=== PATIENT | female | born 1935 | race Caucasian/White ===

== ENCOUNTER → 2019-01-28 | Outpatient (CLI) | payer MEDICARE, BC ==
--- NOTE | 2019-01-29 07:22 | US ---
EXAMINATION TYPE: US carotid duplex BILAT DATE OF EXAM: 01/28/2019 COMPARISON: NONE CLINICAL HISTORY: I65.22 OCCLUSION AND STENOSIS LT CAROTID. 6 month follow up EXAM MEASUREMENTS: RIGHT: Peak Systolic Velocity (PSV) cm/sec ----- Right CCA: 96.7 ----- Right ICA: 91.3 ----- Right ECA: 162.8 ICA/CCA ratio: 0.9 RIGHT: End Diastole cm/sec ----- Right CCA: 19.9 ----- Right ICA: 33.9 ----- Right ECA: 32.0 LEFT: Peak Systolic Velocity (PSV) cm/sec ----- Left CCA: 87.5 ----- Left ICA: 196.5 ----- Left ECA: 110.5 ICA/CCA ratio: 2.2 LEFT: End Diastole cm/sec ----- Left CCA: 24.5 ----- Left ICA: 63.5 ----- Left ECA: 25.0 VERTEBRALS (direction of flow): Right Vertebral: Antegrade Left Vertebral: Antegrade Rhythm: Normal Bilateral intimal thickening, plaque bilateral bulb and left proximal ICA, elevated velocities: right proximal ECA, and left proximal and mid ICA, left ICA/CCA ratio 2.2 Turbulent flow is present bilaterally with filling of the acoustic window. IMPRESSION: 1. 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 This is causing moderate stenosis 50 and 69% at the le ft internal carotid artery origin. Correlate with patient's symptoms. 2. Mild stenosis of less than 50% present on the right ICA. Criteria for Assigning % of Stenosis / Diameter reduction (Estimation based on the indirect measurements of the internal carotid artery velocities (ICA PSV). 1. Normal (no stenosis)=ICA PSV < 125 cm/s: ratio < 2.0: ICA EDV<40 cm/s. 2. Less than 50% stenosis=ICA PSV < 125 cm/s: ratio < 2.0: ICA EDV<40 cm/s. 3. 50 to 69% stenosis=ICA PSV of 125 to 230 cm/s: ratio 2.0 ? 4.0: ICA EDV 40-100 cm/s. 4. Greater than 70% stenosis to near occlusion= ICA PSV > 230 cm/s: ratio > 4.0: ICA EDV > 100 cm/s. 5. Near occlusion= ICA PSV velocities may be low or undetectable: variable ratio and ICA EDV. 6. Total occlusion=unable to detect flow.
== END | disposition home or self-care (01) ==
LOC: RADUSWWP 16:08
PROVIDERS: ATTEND Internal Medicine Geriatric Medicine
DX: I65.23 Occlusion and stenosis of bilateral carotid arteries (principal)
CPT/HCPCS: 93880

== ENCOUNTER 2019-06-25 13:03 | Inpatient (IN) | payer MEDICARE, BC ==
[2019-06-25] MEDS ORDERED: methylPREDNISolone SOD SUCCI 125 MG/2 ML VIAL IV STA (13:36)
[2019-06-25] MEDS ORDERED: IPRATROPIUM-ALBUTEROL 3 ML NEB INHALATION STA ×3 (13:36→16:07)
[2019-06-25] MEDS ORDERED: SODIUM CHLORIDE 0.9% 1,000 ML IV STA (13:36)
--- NOTE | 2019-06-25 13:41 | ED ---
SOB HPI - General Chief Complaint: Shortness of Breath Stated Complaint: SOB Time Seen by Provider: 06/25/19 13:25 Source: patient, family, RN notes reviewed Mode of arrival: ambulatory Limitations: no limitations - History of Present Illness Initial Comments: This is a 83-year-old female was a former smoker who quit 25 years ago and was told she may have emphysema many years ago who states she's had a cough and shortness of breath for the past week or so. She states her family doctor put her on an inhaler which is not helping. He states is getting worse she has had yellow phlegm with her cough today was clear she has chills no fevers or sweats. She also states she has some right lower quadrant abdominal pain she believes is secondary to coughing so much she denies any nausea vomiting diarrhea or other symptoms at this time. No overt chest pain. MD Complaint: shortness of breath, cough - Related Data Allergies Allergy/AdvReac Type Severity Reaction Status Date / Time No Known Allergies Allergy Verified 06/25/19 13:16 Review of Systems ROS Statement: Those systems with pertinent positive or pertinent negative responses have been documented in the HPI. ROS Other: All systems not noted in ROS Statement are negative. Past Medical History Past Medical History: Hyperlipidemia, Hypertension History of Any Multi-Drug Resistant Organisms: None Reported Past Surgical History: Coronary Bypass/CABG Past Psychological History: No Psychological Hx Reported Smoking Status: Former smoker Past Alcohol Use History: Occasional Past Drug Use History: None Reported General Exam - General Exam Comments Initial Comments: This is a well-developed well-nourished awake alert oriented 3 female Limitations: no limitations General appearance: alert, anxious Head exam: Present: atraumatic, normocephalic, normal inspection Eye exam: Present: normal appearance, PERRL, EOMI. Absent: scleral icterus, conjunctival injection, periorbital swelling ENT exam: Present: mucous membranes dry Neck exam: Present: normal inspection, full ROM, other (No stridor JVD or bruits). Absent: tenderness, meningismus, lymphadenopathy Respiratory exam: Present: respiratory distress, wheezes, accessory muscle use, decreased breath sounds, other (Scattered right lower lobe rhonchi). Absent: rales, rhonchi, stridor Cardiovascular Exam: Present: regular rate, normal rhythm, normal heart sounds. Absent: systolic murmur, diastolic murmur, rubs, gallop, clicks GI/Abdominal exam: Present: soft, normal bowel sounds. Absent: distended, tend erness, guarding, rebound, rigid Extremities exam: Present: normal inspection, full ROM, normal capillary refill. Absent: tenderness, pedal edema, joint swelling, calf tenderness Back exam: Present: normal inspection Neurological exam: Present: alert, oriented X3, CN II-XII intact Psychiatric exam: Present: normal affect, normal mood Skin exam: Present: warm, dry, intact, normal color. Absent: rash Course Vital Signs 06/25/19 06/25/19 06/25/19 13:11 13:37 13:48 Temperature 97.6 F Pulse Rate 95 75 75 Respiratory 18 18 Rate Blood Pressure 144/83 132/82 O2 Sat by Pulse 95 96 Oximetry 06/25/19 06/25/19 06/25/19 13:54 13:55 14:38 Temperature Pulse Rate 76 76 Respiratory 18 18 Rate Blood Pressure 127/83 O2 Sat by Pulse 92 L Oximetry 06/25/19 06/25/19 15:34 15:47 Temperature Pulse Rate 75 79 Respiratory Rate Blood Pressure O2 Sat by Pulse Oximetry - Reevaluation(s) Reevaluation #1: 06/25/19 15:29 Patient does states she feels improved though her sats still about 91% with oxygen and repeat examination reveals markedly diminished breath sounds still perhaps somewhat better than the original exam however. Reevaluation #2: 06/25/19 16:09 She was ambulated after repeat updraft she demonstrates hypoxemia with saturations dropping down into the upper 90s demonstrates exertional dyspnea with paradoxical breathing and rib retractions. Medical Decision Making - Medical Decision Making I did discuss the findings with the patient later with Dr. Holland the patient is feeling outpatient treatment will require inpatient treatment. Patient will be admitted for inpatient treatment as well as consultation by Dr. Calero. - Lab Data Result diagrams: 06/25/19 13:50 06/25/19 13:50 Lab Results 06/25/19 06/25/19 06/25/19 Range/Units 13:50 13:50 13:50 WBC 9.0 (3.8-10.6) k/uL RBC 4.12 (3.80-5.40) m/uL Hgb 13.1 (11.4-16.0) gm/dL Hct 39.5 (34.0-46.0) % MCV 95.8 (80.0-100.0) fL MCH 31.7 (25.0-35.0) pg MCHC 33.1 (31.0-37.0) g/dL RDW 12.5 (11.5-15.5) % Plt Count 218 (150-450) k/uL Neutrophils % 73 % Lymphocytes % 17 % Monocytes % 7 % Eosinophils % 1 % Basophils % 1 % Neutrophils # 6.6 (1.3-7.7) k/uL Lymphocytes # 1.5 (1.0-4.8) k/uL Monocytes # 0.6 (0-1.0) k/uL Eosinophils # 0.1 (0-0.7) k/uL Basophils # 0.0 (0-0.2) k/uL PT 10.0 (9.0-12.0) sec INR 0.9 (<1.2) APTT 24.5 (22.0-30.0) sec Sodium 139 (137-145) mmol/L Potassium 4.0 (3.5-5.1) mmol/L Chloride 104 (98-107) mmol/L Carbon Dioxide 24 (22-30) mmol/L Anion Gap 11 mmol/L BUN 24 H (7-17) mg/dL Creatinine 1.56 H (0.52-1.04) mg/dL Est GFR (CKD-EPI)AfAm 35 (>60 ml/min/1.73 sqM) Est GFR (CKD-EPI)NonAf 30 (>60 ml/min/1.73 sqM) Glucose 110 H (74-99) mg/dL Calcium 9.4 (8.4-10.2) mg/dL Magnesium 2.0 (1.6-2.3) mg/dL Total Bilirubin 0.7 (0.2-1.3) mg/dL AST 23 (14-36) U/L ALT 16 (9-52) U/L Alkaline Phosphatase 86 (38-126) U/L Creatine Kinase 126 (30-135) U/L Troponin I (0.000-0.034) ng/mL NT-Pro-B Natriuret Pep pg/mL Total Protein 7.0 (6.3-8.2) g/dL Albumin 3.9 (3.5-5.0) g/dL 06/25/19 06/25/19 Range/Units 13:50 13:50 WBC (3.8-10.6) k/uL RBC (3.80-5.40) m/uL Hgb (11.4-16.0) gm/dL Hct (34.0-46.0) % MCV (80.0-100.0) fL MCH (25.0-35.0) pg MCHC (31.0-37.0) g/dL RDW (11.5-15.5) % Plt Count (150-450) k/uL Neutrophils % % Lymphocytes % % Monocytes % % Eosinophils % % Basophils % % Neutrophils # (1.3-7.7) k/uL Lymphocytes # (1.0-4.8) k/uL Monocytes # (0-1.0) k/uL Eosinophils # (0-0.7) k/uL Basophils # (0-0.2) k/uL PT (9.0-12.0) sec INR (<1.2) APTT (22.0-30.0) sec Sodium (137-145) mmol/L Potassium (3.5-5.1) mmol/L Chloride (98-107) mmol/L Carbon Dioxide (22-30) mmol/L Anion Gap mmol/L BUN (7-17) mg/dL Creatinine (0.52-1.04) mg/dL Est GFR (CKD-EPI)AfAm (>60 ml/min/1.73 sqM) Est GFR (CKD-EPI)NonAf (>60 ml/min/1.73 sqM) Glucose (74-99) mg/dL Calcium (8.4-10.2) mg/dL Magnesium (1.6-2.3) mg/dL Total Bilirubin (0.2-1.3) mg/dL AST (14-36) U/L ALT (9-52) U/L Alkaline Phosphatase (38-126) U/L Creatine Kinase (30-135) U/L Troponin I <0.012 (0.000-0.034) ng/mL NT-Pro-B Natriuret Pep 254 pg/mL Total Protein (6.3-8.2) g/dL Albumin (3.5-5.0) g/dL - EKG Data -: EKG Interpreted by Me EKG shows normal: sinus rhythm (Sinus rhythm a 78. Interval 146 QRS duration 76 QT/QTC 394/[address] configuration some artifact present) - Radiology Data Radiology results: report reviewed, image reviewed Critical Care Time Critical Care Time: Yes Critical Care Time: 31 minutes of critical care time which includes initial presentation with history physical labs x-rays multiple reevaluation the patient response to therapy discuss with the main physician admission orders and documentation of the above. Disposition Clinical Impression: Acute exacerbation of chronic obstructive pulmonary disease, Acute respiratory distress syndrome in adult, Failure of outpatient treatment, Bronchitis Disposition: ADMITTED IP TO THIS [facility] Condition: Fair Referrals: Chandler Holland MD [Primary Care Provider] - 1-2 days
[2019-06-25 14:12] LABS: Basophils % (A) 1 %; Eosinophils # (A) 0.1 k/uL (0-0.7); Eosinophils % (A) 1 %; HCT 39.5 % (34.0-46.0); HGB 13.1 gm/dL (11.4-16.0); Lymphocytes # (A) 1.5 k/uL (1.0-4.8); Lymphocytes % (A) 17 %; MCH 31.7 pg (25.0-35.0); MCHC 33.1 g/dL (31.0-37.0); MCV 95.8 fL (80.0-100.0); Mean Platelet Volume 8.8; Monocytes # (A) 0.6 k/uL (0-1.0); Monocytes % (A) 7 %; Neutrophils # (A) 6.6 k/uL (1.3-7.7); Neutrophils % (A) 73 %; Platelet Count 218 k/uL (150-450); RBC 4.12 m/uL (3.80-5.40); RDW 12.5 % (11.5-15.5)
--- NOTE | 2019-06-25 14:16 | XR ---
EXAMINATION TYPE: XR chest 2V DATE OF EXAM: 06/25/2019 COMPARISON: NONE HISTORY: Shortness of breath TECHNIQUE: Frontal and lateral views of the chest are obtained. FINDINGS: There is no focal air space opacity, pleural effusion, or pneumothorax seen. The cardiac silhouette size is within normal limits. There is unfolding of the abdominal aorta. Post CABG change s are seen. Increased anterior posterior of the chest on the lateral view suggesting underlying COPD. Diffuse osseous demineralization. The osseous structures are intact. IMPRESSION: No acute cardiopulmonary process. Findings suggesting underlying COPD.
[2019-06-25 14:21] LABS: Albumin 3.9 g/dL (3.5-5.0); Calcium 9.4 mg/dL (8.4-10.2); Total Bilirubin 0.7 mg/dL (0.2-1.3)
[2019-06-25 14:22] LABS: INR 0.9 (<1.2); Partial Thromboplastin Time 24.5 sec (22.0-30.0)
[2019-06-25] MEDS: SODIUM CHLORIDE 0.9% 1,000 ML IV SCH (16:22)
[2019-06-25] MEDS: methylPREDNISolone SOD SUCCI 125 MG/2 ML VIAL IV SCH ×2 (17:58→21:40)
--- NOTE | 2019-06-25 18:13 | P.CNPUL ---
History of Present Illness Consult date: 06/25/19 Reason for consult: COPD Chief complaint: shortness of breath and cough. History of present illness: this is an 83-year-old female with history of multiple medical problems including coronary artery disease, previous CABG, history of abdominal aortic aneurysm and previous repair, history of glaucoma, hypertension, recently seen by her hand etcher helper, and he was concerned about her glaucoma drops may be causing worsening symptoms of shortness of breath. conveyed to her primary care physician, and he recommended albuterol 2 puffs 4 times a day when necessary. Patient did not feel any better, continues to have intermittent episodes of cough, wheezing, lung congestion. Patient used to be a heavy smoker, she is at least a [id number] smoker, quit about 25 years ago. Never diagnosed with COPD and still recently. Patient came into the ER with worsening symptoms of cough wheezing and shortness of breath, cough described as productive with yellow phlegm. Chest x-ray showed no evidence of active disease. Patient was admitted and this consult was initiated. Patient denies any fever or chills, denies any hemoptysis, denies any chest pain, no nausea, no vomiting, and no abdominal pain. Review of Systems CONSTITUTIONAL: Denies weight loss fever or chills. CARDIOVASCULAR: Denies chest pain or syncope or palpitations. RESPIRATORY: as noted in HPI. Mostly recurrent episodes of cough wheezing and shortness of breath. GENITOURINARY: Denies hematuria frequency urgency or dysuria MUSCULOSKELETAL: Denies any aches or pains. SKIN: No rashes no pruritus. PSYCHIATRIC: Denies any active depression symptoms. NEUROLOGY: No headache blurred vision or dizziness EARS/NOSE/THROAT: No earache, no sore throat, no nasal discharge EYES:, no diplopia, no blurred vision. GI: Denies any nausea vomiting, no melena, no hematemesis. No abdominal pain. Past Medical History Past Medical History: Hyperlipidemia, Hypertension Additional Past Medical History / Comment(s): history of abdominal aortic aneurysm requiring repair at [facility]. History of Any Multi-Drug Resistant Organisms: None Reported Past Surgical History: Coronary Bypass/CABG Past Psychological History: No Psychological Hx Reported Smoking Status: Former smoker Past Alcohol Use History: Occasional Past Drug Use History: None Reported Medications and Allergies Home Medications Medication Instructions Recorded Confirmed Type ALPRAZolam [Xanax] 0.25 mg PO TID PRN 12/06/19 12/06/19 History Albuterol Inhaler [Ventolin Hfa 2 puff INHALATION RT-Q6H PRN 06/25/19 06/25/19 History Inhaler] Aspirin EC [Ecotrin Low Dose] 81 mg PO DAILY 06/25/19 06/25/19 History Carvedilol [Coreg] 6.25 mg PO BID 06/25/19 06/25/19 History Ergocalciferol [Vitamin D2] 50,000 unit PO ROMERO 06/25/19 06/25/19 History Furosemide [Lasix] 40 mg PO DAILY 06/25/19 06/25/19 History Losartan Potassium [Cozaar] 50 mg PO DAILY 06/25/19 06/25/19 History Simvastatin [Zocor] 40 mg PO DAILY 06/25/19 06/25/19 History Timolol 0.5% Ophth Soln [Timoptic 1 drop BOTH EYES DAILY 06/25/19 06/25/19 History 0.5% Ophth Soln] Allergies Allergy/AdvReac Type Severity Reaction Status Date / Time No Known Allergies Allergy Verified 06/25/19 16:56 Physical Exam Vitals: Vital Signs Temp Pulse Resp BP Pulse Ox 06/25/19 17:16 97.6 F 73 18 127/83 92 L 06/25/19 16:59 73 06/25/19 16:50 80 06/25/19 15:47 79 06/25/19 15:34 75 06/25/19 14:38 76 18 127/83 92 L 06/25/19 13:55 18 06/25/19 13:54 76 06/25/19 13:48 75 06/25/19 13:37 75 18 132/82 96 06/25/19 13:11 97.6 F 95 18 144/83 95 Intake and Output 06/25/19 06/25/19 06/25/19 06:59 14:59 22:59 Other: Weight 68.492 kg Physical Exam: Revealed a 83-year-old female, pleasant, in no distress. Head: Atraumatic, normocephalic. HEENT:[Neck is supple.] [No neck masses.] [No thyromegaly.] [No JVD.] PERRLA, EOMI, no icterus. Chest: [Diminished breath sounds at the bases no crackles or rhonchi or wheezes. Cardiac Exam: [Normal S1 and S2, no S3 gallop, no murmur.] Abdomen: [Soft, nontender, no megaly, no rebound, no guarding, normal bowel sounds.] Extremities: [No clubbing, no edema, no cyanosis.] Good pulses bilaterally Neurological Exam: [No focal neurologic deficit.] Alert and oriented 3. Psychiatric: Normal mood affect and normal mental status examination. Skin: No rashes. Lymphatics: No lymphadenopathy. Results - Laboratory Findings CBC and BMP: 06/25/19 13:50 06/25/19 13:50 PT/INR, D-dimer PT 10.0 sec (9.0-12.0) 06/25/19 13:50 INR 0.9 (<1.2) 06/25/19 13:50 Abnormal lab findings: Abnormal Labs 06/25/19 13:50 BUN 24 H Creatinine 1.56 H Glucose 110 H - Diagnostic Findings Chest x-ray: image reviewed (chest x-ray is consistent with COPD, no evidence of acute cardiopulmonary process.) Assessment and Plan Assessment: impression: 1 acute exacerbation of COPD 2 acute tracheobronchitis 3 history of underlying coronary artery disease and previous CABG over 12 years ago. Patient does not follow regularly with cardiology. 4 history of glaucoma. 5 history of abdominal aortic aneurysm requiring repair at [facility]. Recommendation: Continue present course of treatment including Augmentin, DuoNeb updrafts 4 times a day and when necessary, will add Symbicort continue methylprednisolone, and could possibly consider discharge planning in the next 24 or 48 hours, and follow-up on outpatient basis. We'll continue to follow. Time with Patient: Greater than 30
[2019-06-25] MEDS: PANTOPRAZOLE 40 MG TABLET PO SCH (18:25)
[2019-06-25] MEDS: SYMBICORT 160-4.5 MCG INHALER INHALATION SCH (19:24)
[2019-06-25] MEDS ORDERED: IPRATROPIUM-ALBUTEROL 3 ML NEB INHALATION SCH (20:00)
[2019-06-25] MEDS: ALPRAZolam 0.25 MG TAB PO PRN (21:40)
[2019-06-25] MEDS: CARVEDILOL 6.25 MG TAB PO SCH (21:40)
[2019-06-25] MEDS ORDERED: IPRATROPIUM-ALBUTEROL 3 ML NEB INHALATION PRN (21:42)
[2019-06-25] MEDS: AMOXIC-POT CLAV 875-125MG 1 EACH TAB PO SCH (22:02)
[2019-06-26] MEDS: SODIUM CHLORIDE 0.9% 1,000 ML IV SCH (03:37)
[2019-06-26] MEDS: methylPREDNISolone SOD SUCCI 125 MG/2 ML VIAL IV SCH (05:38)
[2019-06-26] MEDS: TIMOLOL 0.5% OPHTH DROPS 5 ML BTL BOTH EYES SCH (08:05)
[2019-06-26] MEDS: ASPIRIN 81 MG PO SCH (08:06)
[2019-06-26] MEDS: AMOXIC-POT CLAV 875-125MG 1 EACH TAB PO SCH ×2 (08:06→20:31)
[2019-06-26] MEDS: ATORVASTATIN 20 MG TAB PO SCH (08:06)
[2019-06-26] MEDS: CARVEDILOL 6.25 MG TAB PO SCH ×2 (08:06→17:20)
[2019-06-26] MEDS: HEPARIN SODIUM,PORCINE 5,000 UNIT/ML 1 ML VIAL SQ SCH ×2 (08:06→20:31)
[2019-06-26] MEDS: PANTOPRAZOLE 40 MG TABLET PO SCH (08:06)
[2019-06-26] MEDS: SYMBICORT 160-4.5 MCG INHALER INHALATION SCH ×2 (08:08→20:11)
[2019-06-26] MEDS: IPRATROPIUM-ALBUTEROL 3 ML NEB INHALATION SCH ×4 (08:08→20:12)
[2019-06-26] MEDS ORDERED: LOSARTAN 50 MG TAB PO SCH (09:00)
[2019-06-26 09:59] LABS: Calcium 9.8 mg/dL (8.4-10.2); Potassium 3.7 mmol/L (3.5-5.1)
--- NOTE | 2019-06-26 11:47 | P.HPIM ---
History of Present Illness H&P Date: 06/26/19 Chief Complaint: Worsening shortness of breath This is an 83-year-old female patient of Dr. Holland with past medical history of coronary artery disease status post three-vessel CABG, history of abdominal aortic aneurysm and previous repair performed at [facility], history of glaucoma, hypertension, hyperlipidemia, carotid artery disease, glaucoma, remote history of tobacco use. Patient complains of cough with yellow sputum production. She complains of cough with wheezing and shortness of breath is gradually worsening. Patient presented to [facility] emergency center for evaluation. She was afebrile, pulse ox 95% on room air. Pulse 95 and blood pressure 144/83. Despite treatment in the emergency center she continued to have a decrease in her pulse ox it was decided she would be admitted to the hospital and pulmonary consult has been obtained with Dr. Calero. Of BUN 24 and creatinine 1.56. No baseline lab work available to compare. Blood sugar 110. Troponin negative, proBNP 254. Chest x-ray shows no acute cardiopulmonary process. Findings suggest underlying COPD. at the time of this evaluation, patient states that she has the feeling significantly improved and states that she was able to get up to the bathroom and sharp. She is bringing up sputum for which a sputum culture will be obtained. She denies any fever or chills. She does complain of hoarseness. Solu-Medrol will be decreased to 40 mg every 8 hours. Home oxygen assessment to be done. Plan for discharge home tomorrow. Review of Systems Constitutional: Reports fatigue, Denies chills, Denies fever, Denies poor ap petite Eyes: denies blurred vision, denies pain Ears, nose, mouth and throat: Reports hoarseness, Denies nasal congestion, Denies nasal discharge, Denies vertigo Cardiovascular: Reports dyspnea on exertion, Reports shortness of breath, Denies chest pain, Denies leg edema, Denies lightheadedness, Denies syncope Respiratory: Reports cough, Reports cough with sputum, Reports dyspnea, Reports respiratory infections, Reports wheezing, Denies excessive sputum, Denies hemoptysis, Denies home oxygen Gastrointestinal: Denies abdominal pain, Denies diarrhea, Denies loss of appet ite, Denies nausea, Denies vomiting Genitourinary: Denies dysuria, Denies hematuria, Denies urgency, Denies urinary frequency Musculoskeletal: Denies frequent falls, Denies gait dysfunction, Denies myalgias Integumentary: Denies pruritus, Denies rash, Denies wounds Neurological: Denies change in mentation, Denies change in speech, Denies gait dysfunction, Denies numbness, Denies weakness Psychiatric: Denies anxiety, Denies depression Endocrine: Denies fatigue, Denies weight change Past Medical History Past Medical History: Hyperlipidemia, Hypertension Additional Past Medical History / Comment(s): history of abdominal aortic aneurysm requiring repair at [facility]. History of Any Multi-Drug Resistant Organisms: None Reported Past Surgical History: Coronary Bypass/CABG Additional Past Surgical History / Comment(s): three vessel/ aortic aneurisym repair Past Anesthesia/Blood Transfusion Reactions: No Reported Reaction Past Psychological History: No Psychological Hx Reported Smoking Status: Former smoker Past Alcohol Use History: Occasional Additional Past Alcohol Use History / Comment(s): The patient was a smoker one pack per day for 30 years and quit when she was 48 years of age. Past Drug Use History: None Reported - Past Family History Father Family Medical History: Cancer Additional Family Medical History / Comment(s): Father at age 70 from colon cancer. Mother Additional Family Medical History / Comment(s): Mother at age 92 with history of angina. Brother(s) Additional Family Medical History / Comment(s): Patient had 3 brothers. One at age 41 from a myocardial infarction, one from lung cancer, a third brother from a myocardial infarction. All brothers were smokers. Patient does not have any sisters. Daughter(s) Additional Family Medical History / Comment(s): The patient has 3 daughters. One from breast cancer, one from myocardial infarction. One has no major medical problems and lives in [place]. Patient does not have any sons. Medications and Allergies Home Medications Medication Instructions Recorded Confirmed Type ALPRAZolam [Xanax] 0.25 mg PO TID PRN 06/25/19 06/25/19 History Albuterol Inhaler [Ventolin Hfa 2 puff INHALATION RT-Q6H PRN 06/25/19 06/25/19 History Inhaler] Aspirin EC [Ecotrin Low Dose] 81 mg PO DAILY 06/25/19 06/25/19 History Carvedilol [Coreg] 6.25 mg PO BID 06/25/19 06/25/19 History Ergocalciferol [Vitamin D2] 50,000 unit PO ROMERO 06/25/19 06/25/19 History Furosemide [Lasix] 40 mg PO DAILY 06/25/19 06/25/19 History Losartan Potassium [Cozaar] 50 mg PO DAILY 06/25/19 06/25/19 History Simvastatin [Zocor] 40 mg PO DAILY 06/25/19 06/25/19 History Timolol 0.5% Ophth Soln [Timoptic 1 drop BOTH EYES DAILY 06/25/19 06/25/19 History 0.5% Ophth Soln] Allergies Allergy/AdvReac Type Severity Reaction Status Date / Time No Known Allergies Allergy Verified 06/25/19 16:56 Physical Exam Vitals: Vital Signs Temp Pulse Pulse Resp BP BP Pulse Ox 06/26/19 08:25 70 06/26/19 08:08 72 06/26/19 04:29 97.7 F 82 19 146/74 90 L 06/26/19 00:00 96 18 06/25/19 20:41 97.8 F 96 18 135/69 93 L 06/25/19 19:45 70 06/25/19 19:25 72 97 06/25/19 18:05 97.5 F L 101 H 18 142/73 96 06/25/19 17:16 97.6 F 73 18 127/83 92 L 06/25/19 16:59 73 06/25/19 16:50 80 06/25/19 15:47 79 06/25/19 15:34 75 06/25/19 14:38 76 18 127/83 92 L 06/25/19 13:55 18 06/25/19 13:54 76 06/25/19 13:48 75 06/25/19 13:37 75 18 132/82 96 06/25/19 13:11 97.6 F 95 18 144/83 95 Intake and Output 06/25/19 06/26/19 06/26/19 22:59 06:59 14:59 Intake Total 1020 Balance 1020 Intake: Intake, IV Titration 600 Amount Sodium Chloride 0.9% 1, 600 000 ml @ 100 mls/hr IV . Q10H STA Rx#:[id number] Oral 420 Other: # Voids 1 2 Weight 68.492 kg Gen: This is an 83-year-old female. She is resting in bed and appears to be comfortable and in no acute distress. No respiratory distress noted. HEENT: Head is atraumatic, normocephalic. Pupils equal, round. Sclerae is anicteric, hoarseness noted. NECK: Supple. No JVD. No lymphadenopathy. No thyromegaly. LUNGS: Diminished in the bases with end expiratory wheeze. No wheezes or rhonchi. No intercostal retractions. HEART: Regular rate and rhythm. No murmur. ABDOMEN: Soft. Bowel sounds are present. No masses. No tenderness. Ventral hernia, soft. EXTREMITIES: No pedal edema. No calf tenderness. Dorsalis pedis +2 bila terally. NEUROLOGICAL: Patient is awake, alert and oriented x3. Cranial nerves 2 through 12 are grossly intact. Results CBC & Chem 7: 06/25/19 13:50 06/26/19 09:11 Labs: Abnormal Lab Results - Last 24 Hours (Table) 06/25/19 Range/Units 13:50 BUN 24 H (7-17) mg/dL Creatinine 1.56 H (0.52-1.04) mg/dL Glucose 110 H (74-99) mg/dL Thrombosis Risk Factor Assmnt - DVT/VTE Prophylaxis DVT/VTE Prophylaxis: Pharmacologic Prophylaxis ordered - Choose All That Apply Each Factor Represents 1 point: Abnormal pulmonary function (COPD), Obesity (BMI >25) Each Risk Factor Represents 3 Points: Age 75 years or older Other congenital or acquired thrombophilia - If yes, enter type in comment: No Thrombosis Risk Factor Assessment Total Risk Factor Score: 5 Thrombosis Risk Factor Assessment Level: High Risk Assessment and Plan Plan: 1. Acute respiratory distress secondary to COPD exacerbation with acute tracheobronchitis. Continue DuoNeb treatments 4 times daily and every 2 hours as needed, Augmentin twice daily, Symbicort 2 puffs twice daily, Solu-Medrol 60 mg IV every 6 hours will be reduced to 40 mg every 8 hours. 2. History of coronary artery disease status post CABG over 12 years ago. Continue Coreg 6.25 mg twice daily, aspirin 81 mg daily, Lipitor 20 mg daily. 3. Hypertension. Continue Coreg, Lasix 40 mg daily and losartan 50 mg daily. Losartan discontinued and patient started on hydralazine. 4. Hyperlipidemia. Continue statin. 5. History of abdominal aortic aneurysm status post repair at [facility], stable. 6. Glaucoma. Continue eyedrops 7. Carotid artery disease with moderate stenosis 50-69% on the left and mild st enosis of less than 50% on the right ICA, stable. 8. DVT prophylaxis. Heparin subcu every 12 hours. 9. GI prophylaxis. Protonix. 10. Possible chronic hypoxic respiratory failure. Patient will be assessed for home oxygen needs. 11. Acute kidney injury with chronic kidney disease stage. Losartan discontinued and patient placed on hydralazine 25 mg twice daily Patient will be admitted to the hospital for a minimum of 2 night stay. Discharge plan: home on Friday. Impression and plan of care have been directed as dictated by the signing physician. Yulia Wright nurse practitioner acting as scribe for signing physician.
[2019-06-26 12:12] VITALS: BMI 29.5
--- NOTE | 2019-06-26 13:25 | P.PN ---
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 conveyed to her primary care physician, and he recommended albuterol 2 puffs 4 times a day when necessary. Patient did not feel any better, continues to have intermittent episodes of cough, wheezing, lung congestion. Patient used to be a heavy smoker, she is at least a [id number] smoker, quit about 25 years ago. Never diagnosed with COPD and still recently. Patient came into the ER with worsening symptoms of cough wheezing and shortness of breath, cough described as productive with yellow phlegm. Chest x-ray showed no evidence of active disease. Patient was admitted and this consult was initiated. Patient denies any fever or chills, denies any hemoptysis, denies any chest pain, no nausea, no vomiting, and no abdominal pain . Reevaluated today on 06/26/2019, patient is slightly better compared to yesterday, less cough and less wheezing less shortness of breath. Placed on multiple bronchodilators as noted in my previous note. Labs today were all reviewed, creatinine is a bit higher compared to yesterday it is 1.62 today. Remains on updrafts, Symbicort, and methylprednisolone. Objective - Vital Signs Vital signs: Vital Signs Temp 98.3 F 06/26/19 12:47 Pulse 76 06/26/19 12:51 Resp 17 06/26/19 12:47 BP 130/76 06/26/19 12:47 Pulse Ox 93 L 06/26/19 12:47 Intake & Output 06/25/19 06/26/19 06/26/19 18:59 06:59 18:59 Intake Total 1020 Balance 1020 Weight 68.492 kg 68.492 kg Intake: Intake, IV Titration 600 Amount Sodium Chloride 0.9% 1, 600 000 ml @ 100 mls/hr IV . Q10H STA Rx#:[id number] Oral 420 Other: Voiding Method Toilet # Voids 2 - Exam Physical Exam: Revealed a 83-year-old female, pleasant, in no distress. Head: Atraumatic, normocephalic. HEENT:[Neck is supple.] [No neck masses.] [No thyromegaly.] [No JVD.] PERRLA, EOMI, no icterus. Chest: [Diminished breath sounds at the bases no crackles or rhonchi or wheezes. Cardiac Exam: [Normal S1 and S2, no S3 gallop, no murmur.] Abdomen: [Soft, nontender, no megaly, no rebound, no guarding, normal bowel sounds.] Extremities: [No clubbing, no edema, no cyanosis.] Good pulses bilaterally Neurological Exam: [No focal neurologic deficit.] Alert and oriented 3. Psychiatric: Normal mood affect and normal mental status examination. Skin: No rashes. Lymphatics: No lymphadenopathy. - Labs CBC & Chem 7: 06/25/19 13:50 06/26/19 09:11 Labs: Abnormal Lab Results - Last 24 Hours (Table) 06/25/19 06/26/19 Range/Units 13:50 09:11 BUN 24 H 23 H (7-17) mg/dL Creatinine 1.56 H 1.62 H (0.52-1.04) mg/dL Glucose 110 H 208 H (74-99) mg/dL Assessment and Plan Assessment: impression: 1 acute exacerbation of COPD 2 acute tracheobronchitis 3 history of underlying coronary artery disease and previous CABG over 12 years ago. Patient does not follow regularly with cardiology. 4 history of glaucoma. 5 history of abdominal aortic aneurysm requiring repair at [facility]. Recommendation: Continue present course of treatment including Augmentin, DuoNeb updrafts 4 times a day continue methylprednisolone, continue Symbicort, possible discharge planning on Friday. We'll continue to follow. Time with Patient: Less than 30
[2019-06-26] MEDS: ALPRAZolam 0.25 MG TAB PO PRN (14:42)
[2019-06-26] MEDS ORDERED: methylPREDNISolone SOD SUCCI 40 MG/ML 1 ML VIAL IV SCH (16:00)
[2019-06-26] MEDS: hydrALAZINE HCL 25 MG TAB PO SCH (20:31)
[2019-06-26] MEDS: methylPREDNISolone SOD SUCCI 40 MG/ML 1 ML VIAL IV SCH (20:31)
[2019-06-26] MEDS ORDERED: TEMAZEPAM 15 MG CAP PO SCH (21:00)
[2019-06-27 04:48] VITALS: BP 101/63; RESP 17; TEMP 97.6
[2019-06-27] MEDS: SYMBICORT 160-4.5 MCG INHALER INHALATION SCH (07:23)
[2019-06-27] MEDS: IPRATROPIUM-ALBUTEROL 3 ML NEB INHALATION SCH ×2 (07:25→11:02)
[2019-06-27 07:58] LABS: Potassium 3.9 mmol/L (3.5-5.1)
[2019-06-27] MEDS: hydrALAZINE HCL 25 MG TAB PO SCH (08:23)
[2019-06-27] MEDS: TIMOLOL 0.5% OPHTH DROPS 5 ML BTL BOTH EYES SCH (08:23)
[2019-06-27] MEDS: ASPIRIN 81 MG PO SCH (08:24)
[2019-06-27] MEDS: HEPARIN SODIUM,PORCINE 5,000 UNIT/ML 1 ML VIAL SQ SCH (08:24)
[2019-06-27] MEDS: PANTOPRAZOLE 40 MG TABLET PO SCH (08:24)
[2019-06-27] MEDS: ATORVASTATIN 20 MG TAB PO SCH (08:24)
[2019-06-27] MEDS: CARVEDILOL 6.25 MG TAB PO SCH (08:24)
[2019-06-27] MEDS: AMOXIC-POT CLAV 875-125MG 1 EACH TAB PO SCH (08:24)
[2019-06-27] MEDS: methylPREDNISolone SOD SUCCI 40 MG/ML 1 ML VIAL IV SCH (08:24)
--- NOTE | 2019-06-27 10:59 | P.PN ---
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 conveyed to her primary care physician, and he recommended albuterol 2 puffs 4 times a day when necessary. Patient did not feel any better, continues to have intermittent episodes of cough, wheezing, lung congestion. Patient used to be a heavy smoker, she is at least a [id number] smoker, quit about 25 years ago. Never diagnosed with COPD and still recently. Patient came into the ER with worsening symptoms of cough wheezing and shortness of breath, cough described as productive with yellow phlegm. Chest x-ray showed no evidence of active disease. Patient was admitted and this consult was initiated. Patient denies any fever or chills, denies any hemoptysis, denies any chest pain, no nausea, no vomiting, and no abdominal pain. Reevaluated today on 06/26/2019, patient is slightly better compared to yesterday, less cough and less wheezing less shortness of breath. Placed on multiple bronchodilators as noted in my previous note. Labs today were all reviewed, creatinine is a bit higher compared to yesterday it is 1.62 today. Remains on updrafts, Symbicort, and methylprednisolone. On 06/27/2019 patient seen in follow-up on medical surgical floor, she states her breathing has significantly improved, vital signs are stable, she has been ambulating the full length of the rose, doing well, no acute events overnight, lung sounds reveal minimal crackles and minimal wheezes, time she is bringing up some yellow colored phlegm, but no significant congestion on today's exam, remains on IV steroids, nebulized bronchodilators and empiric antibiotics, clinically improved, and patient is being discharged home today. Objective - Vital Signs Vital signs: Vital Signs Temp 97.6 F 06/27/19 04:47 Pulse 85 06/27/19 07:38 Resp 17 06/27/19 04:47 BP 101/63 06/27/19 04:47 Pulse Ox 93 L 06/27/19 07:26 Intake & Output 06/26/19 06/27/19 06/27/19 18:59 06:59 18:59 Intake Total 1140 Balance 1140 Weight 68.492 kg Intake: Intake, IV Titration 600 Amount Sodium Chloride 0.9% 1, 600 000 ml @ 100 mls/hr IV . Q10H INDRA Rx#:[id number] Oral 540 Other: Voiding Method Toilet Toilet Toilet # Voids 3 1 - Exam GENERAL EXAM: Alert, pleasant, 83-year-old white female, on room air, with a pulse ox of 93% comfortable in no apparent distress. HEAD: Normocephalic/atraumatic. EYES: Normal reaction of pupils, equal size. Conjunctiva pink, sclera white. NOSE: Clear with pink turbinates. THROAT: No erythema or exudates. NECK: No masses, no JVD, no thyroid enlargement, no adenopathy. CHEST: No chest wall deformity. Symmetrical expansion. LUNGS: Equal air entry with minimal basilar crackles, and minimal wheeze, no rhonchi or dullness. CVS: Regular rate and rhythm, normal S1 and S2, no gallops, no murmurs, no rubs ABDOMEN: Soft, nontender. No hepatosplenomegaly, normal bowel sounds, no guarding or rigidity. EXTREMITIES: No clubbing, no edema, no cyanosis, 2+ pulses and upper and lower extremities. MUSCULOSKELETAL: Muscle strength and tone normal. SPINE: No scoliosis or deformity SKIN: No rashes CENTRAL NERVOUS SYSTEM: Alert and oriented -3. No focal deficits, tone is normal in all 4 extremities. PSYCHIATRIC: Alert and oriented -3. Appropriate affect. Intact judgment and insight. - Labs CBC & Chem 7: 06/25/19 13:50 06/27/19 07:15 Labs: Abnormal Lab Results - Last 24 Hours (Table) 06/27/19 Range/Units 07:15 Chloride 110 H (98-107) mmol/L BUN 25 H (7-17) mg/dL Creatinine 1.50 H (0.52-1.04) mg/dL Glucose 125 H (74-99) mg/dL Microbiology - Last 24 Hours (Table) 06/25/19 13:50 Blood Culture - Preliminary Blood No Growth after 24 hours Assessment and Plan Plan: Assessment: 1 acute exacerbation of COPD 2 acute tracheobronchitis 3 history of underlying coronary artery disease and previous CABG over 12 years ago. Patient does not follow regularly with cardiology. 4 history of glaucoma. 5 history of abdominal aortic aneurysm requiring repair at [facility]. Plan: Patient is doing well, significantly improved since admission, breathing easier, she is on room air, vital signs are stable, responded well to inpatient treatments, patient is being discharged home today, and she will need outpatient follow-up with Dr. Teran in the office in one or 2 weeks I performed a history & physical examination of the patient and discussed their management with my nurse practitioner, Bonny Guerra. I reviewed the nurse practitioner's note and agree with the documented findings and plan of care. Lung sounds are positive for minimal crackles and minimal wheezes. The findings and the impression was discussed with the patient. I attest to the documentation by the nurse practitioner. Time with Patient: Less than 30
[2019-06-27 11:16] VITALS: PULSE 84
--- NOTE | 2019-06-27 13:07 | P.DS ---
Providers Date of admission: 06/25/19 16:11 Expected date of discharge: 06/27/19 Attending physician: Chandler [facility] Consults: 06/25/19 16:11 Consult Physician Routine Consulting Provider: Stanley Calero Consult Reason/Comments: COPD exacerbation, bronchitis, outpatient treatment failure Do you want consulting provider notified?: Yes Primary care physician: [facility] Course: This is an 83-year-old female patient of Dr. Holland with past medical history of coronary artery disease status post three-vessel CABG, history of abdominal aortic aneurysm and previous repair performed at , history of glaucoma, hypertension, hyperlipidemia, carotid artery disease, glaucoma, remote history of tobacco use. Patient complains of cough with yellow sputum production. She complains of cough with wheezing and shortness of breath is gradually worsening. Patient presented to [facility] emergency center for evaluation. She was afebrile, pulse ox 95% on room air. Pulse 95 and blood pressure 144/83. Despite treatment in the emergency center she continued to have a decrease in her pulse ox it was decided she would be admitted to the hospital and pulmonary consult has been obtained with Dr. Calero. Of BUN 24 and creatinine 1.56. No baseline lab work available to compare. Blood sugar 110. Troponin negative, proBNP 254. Chest x-ray shows no acute cardiopulmonary process. Findings suggest underlying COPD. at the time of this evaluation, patient states that she has the feeling significantly improved and states that she was able to get up to the bathroom and sharp. She is bringing up sputum for which a sputum culture will be obtained. She denies any fever or chills. She does complain of hoarseness. Solu-Medrol will be decreased to 40 mg every 8 hours. Home oxygen assessment to be done. Plan for discharge home tomorrow. 06/27: Patient states today that her breathing is significantly better. She has been hemodynamically stable. She did not qualify for home oxygen. She is bringing up minimal yellow colored phlegm. We will transition her to oral medications and discharged home today in stable condition. Discharge diagnoses: 1. Acute respiratory distress secondary to COPD exacerbation with acute tracheobronchitis. 2. History of coronary artery disease status post CABG over 12 years ago. 3. Hypertension. 4. Hyperlipidemia. 5. History of abdominal aortic aneurysm status post repair at , stable. 6. Glaucoma. 7. Carotid artery disease with moderate stenosis 50-69% on the left and mild stenosis of less than 50% on the right ICA, stable. 8. DVT prophylaxis. 9. GI prophylaxis. 10. Possible chronic hypoxic respiratory failure, ruled out. 11. Chronic kidney disease stage. Discharge plan: home. Impression and plan of care have been directed as dictated by the signing physician. Yulia Wright nurse practitioner acting as scribe for signing colleen olguin. Patient Condition at Discharge: Good Plan - Discharge Summary Discharge Rx Participant: No New Discharge Prescriptions: New hydrALAZINE HCL [Apresoline] 25 mg PO BID #60 tab Amoxic-Pot Clav 875-125Mg [Augmentin 875-125] 1 each PO BID #10 tab predniSONE 0 mg PO DIRECTED #30 tab Budesonide-Formot 160-4.5 Mcg [Symbicort 160-4.5 Mcg Inhaler] 2 puff INHALATION RT-BID #1 inhaler Continue Timolol 0.5% Ophth Soln [Timoptic 0.5% Ophth Soln] 1 drop BOTH EYES DAILY Albuterol Inhaler [Ventolin Hfa Inhaler] 2 puff INHALATION RT-Q6H PRN PRN Reason: Shortness Of Breath ALPRAZolam [Xanax] 0.25 mg PO TID PRN PRN Reason: Anxiety Simvastatin [Zocor] 40 mg PO DAILY Ergocalciferol [Vitamin D2 (DRISDOL)] 50,000 unit PO ROMERO Aspirin EC [Ecotrin Low Dose] 81 mg PO DAILY Furosemide [Lasix] 40 mg PO DAILY Carvedilol [Coreg] 6.25 mg PO BID Discontinued Losartan Potassium [Cozaar] 50 mg PO DAILY Discharge Medication List ALPRAZolam [Xanax] 0.25 mg PO TID PRN 06/25/19 [History] Albuterol Inhaler [Ventolin Hfa Inhaler] 2 puff INHALATION RT-Q6H PRN 06/25/19 [History] Aspirin EC [Ecotrin Low Dose] 81 mg PO DAILY 06/25/19 [History] Carvedilol [Coreg] 6.25 mg PO BID 06/25/19 [History] Ergocalciferol [Vitamin D2 (DRISDOL)] 50,000 unit PO ROMREO 06/25/19 [History] Furosemide [Lasix] 40 mg PO DAILY 06/25/19 [History] Simvastatin [Zocor] 40 mg PO DAILY 06/25/19 [History] Timolol 0.5% Ophth Soln [Timoptic 0.5% Ophth Soln] 1 drop BOTH EYES DAILY 06/25/19 [History] Amoxic-Pot Clav 875-125Mg [Augmentin 875-125] 1 each PO BID #10 tab 06/27/19 [Rx] Budesonide-Formot 160-4.5 Mcg [Symbicort 160-4.5 Mcg Inhaler] 2 puff INHALATION RT-BID #1 inhaler 06/27/19 [Rx] hydrALAZINE HCL [Apresoline] 25 mg PO BID #60 tab 06/27/19 [Rx] predniSONE 0 mg PO DIRECTED #30 tab 06/27/19 [Rx] Follow up Appointment(s)/Referral(s): Stanley Calero MD [STAFF PHYSICIAN] - 1 Week Chandler Holland MD [Primary Care Provider] - 1 Week Patient Instructions/Handouts: ARDS (Acute Respiratory Distress Syndrome) (GEN), Acute Bronchitis (ED), COPD (Chronic Obstructive Pulmonary Disease) (DC)
--- NOTE | 2019-07-01 06:44 | CDI ---
Documentation Clarification Form Date: 07/01/2019 6:27:00 AM From: Veronika Zazuetas Phone: If you have a question about this query, please contact Dana Carrillo [employer] at [phone] between 8am and 5pm Admit Date: 06/25/2019 4:11:00 PM Patient Name: Shelley Barnes Visit Number: [id number] Discharge Date: 06/27/2019 1:08:00 PM ATTENTION: The Clinical Documentation Specialists (CDI) and [facility] Coding Staff appreciate your assistance in clarifying documentation. Please respond to the clarification below the line at the bottom and electronically sign. The CDI & [facility] Coding staff will review the response and follow-up if needed. Please note: Queries are made part of the Legal Health Record. If you have any questions, please contact the author of this message via ITS. Dr. Chandler Holland Documentation of emphysema is located in the ER notes. "patient was a former smoker who quit 25 years ago and was told she may have emphysema many years ago. Please clarify, does patient have emphysema? History/Risk Factors: history of tobacco, acute bronchiitis, COPD Significant history of respiratory disorders/disease COPD Present or past smoker/PPD 1 PPD for 30 years Clinical Indicators: Acute respiratory distress CXR underlying COPD Vital Signs/Pulse Oximetry: Treatment: DuoNeb tx 4 x daily every 2 hours PRN, Augmentin, Symbicort SoluMedrol 60 MG IV O2 @ 2 liters Antibiotics Augmentin In your professional opinion, can you please clarify if the above findings and treatment signify any of the following? Emphysema Emphysema ruled out Other condition, please specify Unable to determine Patient has COPD. It is in the dc summary. MTDD
== END 2019-06-27 13:08 | disposition home or self-care (01) | DRG 191 ==
LOC: EC 13:03 → 3NMEDONC 16:11
PROVIDERS: ADMIT Internal Medicine Geriatric Medicine; ATTEND Internal Medicine Geriatric Medicine
DX: J44.1 Chronic obstructive pulmonary disease with (acute) exacerbation (principal); N17.9 Acute kidney failure, unspecified; J44.0 Chronic obstructive pulmonary disease with (acute) lower respiratory infection; R06.03 Acute respiratory distress; E78.5 Hyperlipidemia, unspecified; H40.9 Unspecified glaucoma; I12.9 Hypertensive chronic kidney disease with stage 1 through stage 4 chronic kidney disease, or unspecified chronic kidney disease; I25.10 Atherosclerotic heart disease of native coronary artery without angina pectoris; J20.9 Acute bronchitis, unspecified; N18.9 Chronic kidney disease, unspecified; Z79.82 Long term (current) use of aspirin; Z79.899 Other long term (current) drug therapy; Z86.79 Personal history of other diseases of the circulatory system; Z87.891 Personal history of nicotine dependence; Z95.1 Presence of aortocoronary bypass graft; T49.5X5A Adverse effect of ophthalmological drugs and preparations, initial encounter; I65.23 Occlusion and stenosis of bilateral carotid arteries; Z99.89 Dependence on other enabling machines and devices
CPT/HCPCS: 36415; 71046; 80048; 80053; 82550; 83735; 83880; 84484; 85025; 85610; 85730; 87040; 87070; 87205; 93005; 94640; 94760; 96361; 96374; 99291

== ENCOUNTER 2020-04-12 12:25 | Day surgery (SDC) | payer MEDICARE, BC ==
[2020-04-11 11:07] VITALS: BMI 27.3
[~2020-04-12 12:25] MED LIST: DEXAMETHASONE SOD PHOSPHATE 10 MG/ML 1 ML VIAL IV ONE; LACTATED RINGERS 1,000 ML IV SCH; MOXIFLOXACIN HCL 0.5% DROPS 3 ML BTL OP NR; ONDANSETRON 4 MG/2 ML VIAL IVP ONE; TETRACAINE 0.5% OPHTH (PF) DROPS 4 ML BTL OP NR; TIMOLOL 0.5% OPHTH DROPS 5 ML BTL OP NR; TOBRA-DEXAMET 0.3-0.1% OPHTH DROPS 2.5 ML BTL OPHTHALMIC NR; fentaNYL (PF) 50 MCG/ML 2 ML AMP IV PRN; fentaNYL (PF) 50 MCG/ML 2 ML AMP IVP PRN
[2020-04-12 13:07] VITALS: RESP 16; TEMP 98.3
[2020-04-12] MEDS: PILOCARPINE 2% OPHTH DROPS 15 ML BTL OP NR ×2 (13:17→14:11)
[2020-04-12] MEDS ORDERED: fentaNYL (PF) 50 MCG/ML 2 ML AMP ONE (13:50)
[2020-04-12] MEDS ORDERED: BALANCED SALT IRRIG SOLN COMB2 500 ML IRRIGATION ONE (14:09)
[2020-04-12] MEDS ORDERED: HYALURONATE SODIUM INTRAOCULAR 1 EACH SYRINGE (10MG/ML) INTRAOCULA ONE (14:11)
[2020-04-12] MEDS ORDERED: TRYPAN BLUE 0.06% SYRINGE 0.5 ML SYRINGE MISCELLANE ONE (14:13)
--- NOTE | 2020-04-12 14:35 | P.OP ---
Date of Procedure: 04/12/20 Preoperative Diagnosis: POAG moderate Postoperative Diagnosis: same Procedure(s) Performed: goniotomy OD Implants: none Anesthesia: MAC Surgeon: Michele Ding Pathology: none sent Condition: stable Disposition: same day Indications for Procedure: poor glaucoma control Operative Findings: no complications
[2020-04-12 14:59] VITALS: BP 164/75; PULSE 71
--- NOTE | 2020-04-12 23:10 | OP ---
OPERATIVE REPORT DATE OF SURGERY: 04/12/2020. PROCEDURE: Goniotomy of the right eye. PREOPERATIVE DIAGNOSIS: Primary open-angle glaucoma, mild stage, with poor control. POSTOPERATIVE DIAGNOSIS: Primary open-angle glaucoma, mild stage, with poor control. SURGEON: Dr. Michele Ding. ANESTHESIA: Monitored anesthesia care. ESTIMATED BLOOD LOSS: Less than 5 mL. SPECIMEN TAKEN: None. NARRATIVE: After obtaining the appropriate consent, the patient was brought to the operating room. There she was placed under cardiac monitoring, prepped and draped in the usual sterile manner. She was approached from her right temporal side, and at the 9 o'clock position, a 2.5 mm keratome was used to create a self-sealing corneal flap incision. Through this opening 1% Xylocaine MPF 50:50 mix with balanced salt solution was injected into the anterior chamber. This was followed by instillation of Trypan blue, which was left in place for one minute. This was irrigated away and Viscoat was then used to deepen the anterior chamber. A small amount of the viscoelastic was also placed on the patient's cornea. The patient was then rotated approximately 45 degrees away to her left while maintaining a gaze in that general direction. Using the KDB knife, a goniotomy of the nasal trabecular meshwork was performed for approximately 5 clock hours. The instrument was withdrawn and there was some reflux of blood from the trabecular meshwork, as would be expected. Irrigation and aspiration of the viscoelastic was accomplished, and the temporal incision proved to be inadequate to maintain proper closure. Therefore single 10-0 nylon suture was placed through the corneal limbus. She then received 2 drops of 0.5% Timolol, 2 drops of moxifloxacin and 2 drops of 2% pilocarpine. She was then lightly patched and shielded in the usual manner. There were no complications from the procedure. She tolerated the procedure well and was returned to [facility] in good condition. MMODL / IJN: [id number] /
== END 2020-04-12 15:14 | disposition home or self-care (01) ==
LOC: OR 12:25
PROVIDERS: ATTEND Ophthalmology
DX: H40.1111 Primary open-angle glaucoma, right eye, mild stage (principal); H40.1331 Pigmentary glaucoma, bilateral, mild stage; H21.233 Degeneration of iris (pigmentary), bilateral; H01.003 Unspecified blepharitis right eye, unspecified eyelid; H00.023 Hordeolum internum right eye, unspecified eyelid; H00.026 Hordeolum internum left eye, unspecified eyelid; H52.222 Regular astigmatism, left eye; H52.4 Presbyopia; I11.0 Hypertensive heart disease with heart failure; I50.9 Heart failure, unspecified; I71.4 Abdominal aortic aneurysm, without rupture; I25.10 Atherosclerotic heart disease of native coronary artery without angina pectoris; E78.5 Hyperlipidemia, unspecified; H91.90 Unspecified hearing loss, unspecified ear; J43.9 Emphysema, unspecified; F32.9 Major depressive disorder, single episode, unspecified; M19.90 Unspecified osteoarthritis, unspecified site; I73.9 Peripheral vascular disease, unspecified; F41.9 Anxiety disorder, unspecified; K21.9 Gastro-esophageal reflux disease without esophagitis; Z95.1 Presence of aortocoronary bypass graft; Z98.890 Other specified postprocedural states; Z97.3 Presence of spectacles and contact lenses; Z96.1 Presence of intraocular lens; Z98.41 Cataract extraction status, right eye; Z98.42 Cataract extraction status, left eye; Z79.02 Long term (current) use of antithrombotics/antiplatelets; Z79.51 Long term (current) use of inhaled steroids; Z79.899 Other long term (current) drug therapy
CPT/HCPCS: 65820; J3010

== ENCOUNTER → 2021-08-20 | Outpatient (CLI) | payer MEDICARE, BC ==
--- NOTE | 2021-08-20 16:53 | ECHOF ---
Referral Reason:I42.9 cardiomyopathy MEASUREMENTS -------- HEIGHT: 152.4 cm WEIGHT: 65.8 kg BP: IVSd: 0.9 cm (0.6 - 1.1) LVIDd: 3.0 cm (3.9 - 5.3) LVPWd: 1.2 cm (0.6 - 1.1) IVSs: 1.7 cm LVIDs: 2.1 cm LVPWs: 1.4 cm LAESV Index (A-L): 26.92 ml/m Ao Diam: 3.3 cm (2.0 - 3.7) AV Cusp: 2.0 cm (1.5 - 2.6) LA Diam: 3.4 cm (2.7 - 3.8) MV EXCURSION: 18.048 mm (> 18.000) MV EF SLOPE: 157 mm/s (70 - 150) EPSS: 0.8 cm MV E Jose F: 0.50 m/s MV DecT: 263 ms MV A Jose F: 0.83 m/s MV E/A Ratio: 0.60 AR PHT: 616 ms RAP: 5.00 mmHg RVSP: 18.75 mmHg FINDINGS -------- This was a technically good study. The left ventricular size is normal. There is mild concentric left ventricular hypertrophy. Overa ll left ventricular systolic function is low-normal with, an EF between 50 - 55 %. The diastolic fi lling pattern is normal for the age of the patient 8.75. The right ventricle is normal in size. The left atrial size is normal. Normal LA size by volume 22+/-6 ml/m2. The right atrial size is normal. The aortic valve is trileaflet and appears structurally normal. There is mild aortic regurgitation. The mitral valve is normal. Mild mitral regurgitation is present. The tricuspid valve appears structurally normal. Mild tricuspid regurgitation present. Right vent ricular systolic pressure is normal at < 35 mmHg. There is no pulmonic regurgitation present. The aortic root size is normal. Normal inferior vena cava with normal inspiratory collapse consistent with estimated right atrial pre ssure of 5 mmHg. There is no pericardial effusion. CONCLUSIONS -------- 1. The left ventricular size is normal. 2. There is mild concentric left ventricular hypertrophy. 3. Overall left ventricular systolic function is low-normal with, an EF between 50 - 55 %. 4. The diastolic filling pattern is normal for the age of the patient 8.75 5. There is mild aortic regurgitation. 6. Mild mitral regurgitation is present. 7. Mild tricuspid regurgitation present. 8. There is no pericardial effusion. [employer] OPERATOR: Marci Zabala RDCS
== END | disposition home or self-care (01) ==
LOC: RADECHMAIN 13:48
PROVIDERS: ATTEND Internal Medicine Geriatric Medicine
DX: I08.3 Combined rheumatic disorders of mitral, aortic and tricuspid valves (principal)
CPT/HCPCS: 93306

== ENCOUNTER → 2021-11-21 | Outpatient (CLI) | payer MEDICARE, BC ==
--- NOTE | 2021-11-22 06:55 | CT ---
EXAMINATION TYPE: CT abdomen wo con DATE OF EXAM: 11/21/2021 HISTORY: AAA W/O RUPTURE CT DLP: 358 mGycm. Automated Exposure Control for Dose Reduction was Utilized. TECHNIQUE: CT scan of the abdomen is performed without oral or IV contrast. COMPARISON: NONE FINDINGS: Within the limitations of a non-contrast study, the following observations are made. LUNG BASES: No significant abnormality is appreciated. LIVER/GB: Dependent density in gallbladder consistent with small stones and/or gallbladder sludge. No biliary dilatation. PANCREAS: No significant abnormality is seen. SPLEEN: No significant abnormality is seen. ADRENALS: No significant abnormality is seen. KIDNEYS: Some cortical thinning in both kidneys. Central calcifications favor vascular etiology. Appr oximately 2.1 cm thin-walled cyst mid pole level left kidney. No hydronephrosis seen bilaterally. BOWEL: Small sized hiatal hernia. Suboptimal evaluation of stomach to poor distention. No suspicious small or large bowel dilatation. Diverticula in the distal left colon extending into the visualized p ortion of the sigmoid colon. LYMPH NODES: No greater than 1cm abdominal lymph nodes are appreciated. OSSEOUS STRUCTURES: Dextroconvex scoliosis centered at L3-L4 level. Grade 1 anterolisthesis L4 and L5 . Grade 1 retrolisthesis T12 on L1 and L1 on L2. Moderate disc space narrowing left L4-L5 level and l eft L3-L4 level with vacuum disc phenomenon. Facet arthropathy lower lumbar levels. OTHER: There is suspected aortoiliac graft. The aorta measures 3.3 x 3.6 cm above the diaphragm axial image 8. Aorta measures 2.8 x 2.6 cm just below diaphragm before suspected graft axial image 18. No greater than 3.0 cm aneurysm distal to this. IMPRESSION: Suspected aortoiliac graft. No greater than 3.0 cm mid to distal AAA.
== END | disposition home or self-care (01) ==
LOC: RADCTMAIN 17:07
PROVIDERS: ATTEND Internal Medicine Geriatric Medicine
DX: I71.4 Abdominal aortic aneurysm, without rupture (principal)
CPT/HCPCS: 74150

== ENCOUNTER → 2022-12-20 | Outpatient (CLI) | payer MEDICARE, BC ==
--- NOTE | 2022-12-21 09:02 | CT ---
EXAMINATION TYPE: CT abdomen pelvis w con DATE OF EXAM: 12/20/2022 COMPARISON: 11/21/2021 HISTORY: generalized abd pain CT DLP: 402.7 mGycm CONTRAST: CT scan of the abdomen and pelvis is performed with Oral Contrast and with IV Contrast, patient injec taty with 80ml mL of Isovue 300. FINDINGS: LUNG BASES-: No visible nodule. No infiltrate. LIVER/GB: Small layering gallstones noted. No space occupying hepatic lesion. Biliary tree is of norm al caliber. PANCREAS: No inflammation. No distinct mass. SPLEEN: No splenic enlargement. No lesion seen. ADRENALS: No nodule. No thickening. KIDNEYS/BLADDER: No hydronephrosis. No nephrolithiasis. Renal cystic changes are redemonstrated. Ur inary bladder grossly unremarkable. BOWEL: There is wall thickening involving the ascending colon extends approximately 7 cm and is suspi cious for underlying mass. There are smaller lymph nodes adjacent to the colon all measuring less ilda n 1 cm. Remainder of the colon is of normal caliber. Moderate fecal stasis. Small bowel is of normal caliber at this time. Ventral fat-containing abdominal hernia. GENITAL ORGANS: No gross abnormality. LYMPH NODES: No greater than 1cm abdominal or pelvic lymph nodes are appreciated. AORTA: Suspected aortoiliac graft is again noted in place. No aneurysm greater than 3 cm appreciated at this time. OSSEOUS STRUCTURES: No significant abnormality is seen. OTHER: No significant additional abnormality is seen. IMPRESSION: 1. Masslike wall thickening involving the ascending colon suspicious for malignancy. Direct visualiza tion is recommended. Several adjacent mildly prominent lymph nodes are seen.
== END | disposition home or self-care (01) ==
LOC: RADCTMAIN 14:09
PROVIDERS: ATTEND Internal Medicine Geriatric Medicine
DX: R10.84 Generalized abdominal pain (principal); K63.89 Other specified diseases of intestine; R59.0 Localized enlarged lymph nodes
CPT/HCPCS: 82565; 84520; 74177; 36415; Q9967